=== PATIENT | female | born 1985 | race Caucasian/White ===

== ENCOUNTER → 2018-04-02 10:23 | Outpatient (CLI) | payer BC, SELFPAY ==
--- NOTE | 2018-04-02 10:30 | RAD_ITS ---
CLINICAL HISTORY: Female, 32 years old. Left shoulder pain and stiffness. PROCEDURE: ARTHROGRAM - LEFT SHOULDER CONSENT: The procedure as well as the benefits and possible complications including infection and bleeding were expanded to the patient. Informed consent was obtained. FLUOROSCOPY TIME (if supplied): (0:36) minutes/seconds. 4 images were obtained. Injection Information: 10 cc of dilute Magnevist Number of images obtained: 4 TECHNIQUE: (All elements of maximal sterile barrier technique followed, including US elements as applicable) The patient was in the supine position. The overlying skin was prepped and draped in the usual sterile fashion. Following local anesthetic application and under direct fluoroscopic guidance, a 22-gauge spinal needle was placed. 2 cc of Isovue 300 was injected for confirmation. Following this, 10 cc of dilute Magnevist was injected. Patient tolerated the procedure well. MRI will follow. RAD/Arthrogram Shoulder w/ MRI IMPRESSION: Successful left shoulder arthrogram. Electronically Signed: Subhash Fitch MD at 12:30 EDT Tel [phone], Service support ,
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
== END ==
PROVIDERS: Family Provider General Practice; PCP General Practice; Referring Provider Physician Assistant; Visit Provider Physician Assistant
DX: M25.512 Pain in left shoulder (principal)
CPT/HCPCS: 23350; 73222; 77002; Q9967

== ENCOUNTER → 2019-01-11 16:21 | Outpatient (CLI) | payer BC, SELFPAY ==
[2019-01-16 12:01] LABS: HPV APTIMA, High Risk Negative (Negative)
== END ==
PROVIDERS: Family Provider General Practice; PCP General Practice; Visit Provider Obstetrics & Gynecology
DX: Z12.4 Encounter for screening for malignant neoplasm of cervix (principal)
CPT/HCPCS: 87624; 88175; G0145

== ENCOUNTER 2021-08-12 15:57 | Outpatient (CLI) | payer BC, SELFPAY ==
[2021-08-12 17:30] LABS: Absolute Lymphocyte Count 1.89 X10^3/uL (0.83-4.51); Absolute Neutrophil Count 4.5 X10^3/uL (2.0-7.7); Basophil# 0.03 X10^3/uL; Basophil% 0.4 % (0-1); Eosinophil# 0.02 X10^3/uL; Eosinophils% 0.3 % (0-5); Hematocrit 41.4 % (37-47); Hemoglobin 14.2 g/dL (12.0-15.0); Lymphocyte # 1.89 X10^3/ul (0.83-4.51); Lymphocyte % 27.4 % (19-41); Mean Corp Hgb Conc 34.3 g/dL (32-36); Mean Corpuscular Hgb 33.4 pg (27.0-32.0); Mean Corpuscular Volume 97.4 fL (81-99); Mean Platelet Vol. 11.5 fl (6.2-12.0); Monocyte# 0.42 X10^3/uL; Monocyte% 6.1 % (0-10); NRBC Flagged by Analyzer 0 % (0-5); Neutrophil % 65.2 % (47-70); Platelet Count 187 K/mm3 (150-450); RBC Distribution Width CV 11.9 % (11.6-14.6); RBC Distribution Width SD 42.6 fl (35.1-43.9); Red Blood Count 4.25 M/mm3 (4.2-5.4); White Blood Count 6.9 K/mm3 (4.4-11.0)
[2021-08-12 18:19] LABS: Thyroid Stim Hormone (TSH) 2.02 uIU/mL (0.358-3.74)
[2021-08-13 09:58] LABS: HIV - WCH Non-Reactive (Nonreactive); Hepatitis B Surface Antigen Non-Reactive (Nonreactive); Hepatitis C Antibody Non-Reactive (Nonreactive); Rubella IgG Reactive (Nonreactive); Syphilis Antibodies Non-reactive; Vitamin D,25 Hydroxy 40.9 ng/mL
[2021-08-16 22:06] LABS: Chlamydia By Nucleic Acid AMP Negative (Negative)
[2021-08-17 11:52] LABS: Gonococcus By Nucleic Acid AMP Negative (Negative)
[2021-08-19 16:46] LABS: HPV APTIMA, High Risk Positive (Negative)
== END 2021-08-12 23:59 | disposition home or self-care (01) ==
PROVIDERS: PCP General Practice; Visit Provider Obstetrics & Gynecology
DX: Z34.81 Encounter for supervision of other normal pregnancy, first trimester (principal); M06.9 Rheumatoid arthritis, unspecified; E55.9 Vitamin D deficiency, unspecified
CPT/HCPCS: 36415; 80307; 81002; 82306; 84443; 85025; 86703; 86762; 86780; 86803; 87086; 87340; 87491; 87591; 87624; 88175; G0145